=== PATIENT | female | born 1995 | race Caucasian/White ===

== ENCOUNTER 2023-06-19 20:59 | Emergency (ER) | payer SELFPAY ==
[~2023-06-19] VITALS: Ht 162.6 cm; Wt 51.0 kg
[2023-06-19 21:08] VITALS: O2SAT 100
[2023-06-19 23:18] VITALS: BP 106/64; PULSE 73; RESP 18; TEMP 98.2
== END 2023-06-19 23:13 | disposition home or self-care (01) ==
LOC: ER 20:59
DX: S00.83XA Contusion of other part of head, initial encounter (principal); S20.211A Contusion of right front wall of thorax, initial encounter; W18.39XA Other fall on same level, initial encounter; Y93.89 Activity, other specified; Y92.89 Other specified places as the place of occurrence of the external cause; Y99.8 Other external cause status
CPT/HCPCS: 71101; 99283